=== PATIENT | male | born 1940 | race Caucasian/White ===

== ENCOUNTER 2017-01-30 15:04 | Emergency (ER) | payer MEDICARE ==
[2017-01-30 15:55] LABS: Bilirubin Negative (Negative); Blood, Urine Negative (Negative); Glucose, Urine (Dipstick) Negative (Negative); Ketone, Urine Negative (Negative); Nitrite Negative (Negative); Protein, Urine (Dipstick) 30 mg/dL (Neg-Trace); Urobilinogen 0.2 mg/dL (0.2-1.0)
[2017-01-30 16:07] LABS: Bacteria/HPF 2+ HPF (None Seen); RBC/HPF None Seen HPF (0-3); Squamous Epithelial 0-3 HPF (0-3); WBC/HPF 0-3 HPF (0-3)
[2017-01-30 16:08] LABS: Anion Gap 18 mmol/L (10-20); BUN (Urea Nitrogen) 28 mg/dL (8.4-25.7); Calc. Creatinine Clearance 0 mL/min (70-130); Calcium 8.3 mg/dL (7.8-10.44); Carbon Dioxide 21 mmol/L (23-31); Chloride 95 mmol/L (98-107); Estimated GFR-MDRD 54
[2017-01-30 16:11] LABS: Troponin I 0.019 ng/mL (< 0.028)
[2017-01-30 16:14] LABS: Band 4 % (5-11); Hematocrit 38.9 % (42.0-52.0); Mean Platelet Volume 6.5 fL (7.4-10.4); Neutrophil 34 % (42-75); Reactive Lymphocytes 3 % (0-10); White Blood Cell (WBC) Count 4.9 thou/uL (4.8-10.8)
--- NOTE | 2017-01-30 16:19 | RAD ---
RADIOGRAPH CHEST 2 VIEWS: 01/30/17 HISTORY: 76-year-old male with cough. FINDINGS: There is no air space density, pulmonary edema, pleural effusion, pneumothorax, or cardiomegaly. IMPRESSION: 1. No acute cardiopulmonary findings. 2. Status post coronary artery bypass graft surgery is evidence for coronary atherosclerotic dis ease. 3. Status post bilateral glenohumeral shoulder joint arthroplasty. alicia villanueva POS: [facility]
--- NOTE | 2017-01-30 17:58 | CT ---
CT THORAX NONCONTRAST: 01/30/17 HISTORY: 76-year-old male with productive cough and fever. COMPARISON: CT of 06/20/09. FINDINGS: There is a subtle finding of very mild multifocal, very faint infiltrate in the left lower lobe poste rolaterally. This would be too subtle to be visible on plain radiograph. It is noted that on the prev ious CT of 2009, there was also a mild infiltrate in the left lower lobe, but it was more prominent a t that time (not to mention the bilateral small consolidations abutting the posterior pleural surface s at that time). There is a new finding of an approximately 2.5 x 1.5 x 3 cm focal ground glass opaci ty in the apical segment of the left upper lobe. The rest of the lungs are essentially clear. Current ly, there is no pleural effusion. Trachea and main bronchi are patent and clear. Heavy atherosclerot ic calcification of all major coronary arteries. Sternotomy wires. Heavy atherosclerotic calcificatio n of thoracic aorta. Nonspecific multiple mildly enlarged mediastinal lymph nodes. Previously demonst rated moderate to large pericardial effusion is no longer present. There is no bronchiectasis, pneumo thorax or solid pulmonary mass. IMPRESSION: 1. Mild, faint, subtle infiltrate in the left lower lobe, probably representing early pneumonia. 2. A small focal ground glass lesion at the apical segment of the left upper lobe. This requires serial followup CTs (beginning in six months) to rule out the possibility of bronchoalveolar cell ca rcinoma (adenocarcinoma in situ). 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 3. Coronary atherosclerotic disease. PRASHANT Monroe POS: [facility]
[2017-01-30] MEDS ORDERED: predniSONE 20 MG TAB ONE (18:34)
[2017-01-30] MEDS ORDERED: Doxycycline Hyclate 100 MG TAB ONE (18:34)
== END 2017-01-30 18:53 | disposition home or self-care (01) ==
LOC: SCSER 15:04
DX: J18.9 Pneumonia, unspecified organism (principal); G47.30 Sleep apnea, unspecified; E78.5 Hyperlipidemia, unspecified; E11.9 Type 2 diabetes mellitus without complications; I10 Essential (primary) hypertension; E66.9 Obesity, unspecified; Z79.4 Long term (current) use of insulin; Z79.01 Long term (current) use of anticoagulants; Z79.82 Long term (current) use of aspirin; Z79.899 Other long term (current) drug therapy
CPT/HCPCS: 71020; 71250; 80048; 81003; 81015; 82553; 83605; 84484; 85025; 87081; 87086; 87430; 93005; 96360; J7506

== ENCOUNTER → 2019-06-02 | Day surgery (SDC) | payer MEDICARE ==
[2019-06-01 13:42] VITALS: BMI 37.9
[2019-06-02 08:53] LABS: Hemoglobin 9.4 g/dL (14.0-18.0); Mean Corpuscular HGB CONC 32.7 g/dL (32.0-36.0); Mean Corpuscular Hemoglobin 31.8 pg (27.0-31.0); Mean Corpuscular Volume 97.5 fL (78.0-98.0); Red Blood Cell (RBC) Count 2.96 mill/uL (4.70-6.10); White Blood Cell (WBC) Count 17.2 thou/uL (4.8-10.8)
[2019-06-02 08:56] LABS: INR-International Normal Ratio 1.3; PTT 37.2 SEC (22.9-36.1); Prothrombin Time 15.9 SEC (12.0-14.7)
[2019-06-02 09:03] LABS: Mean Platelet Volume 6.8 fL (7.4-10.4); Platelet Count 96 thou/uL (130-400); RBC Distribution Width 18.3 % (11.5-14.5)
[2019-06-02 09:13] LABS: Band 20 % (5-11); Lymphocytes 40 % (21-51); MDiff Complete? YES; Metamyelocyte 5 % (0-0); Monocytes 15 % (0-10); Myelocyte 1 % (0-0); Neutrophil 19 % (42-75); Nucleated RBC 2 % (0); Platelet Morphology Comment Appears Decreased; Polychromasia SLIGHT = 2-3 cells (100X) (0-2/hpf)
[2019-06-02 09:57] VITALS: BP 175/68; TEMP 97.6
--- NOTE | 2019-06-02 11:31 | CT ---
CT-guided bone marrow biopsy/aspiration HISTORY: Pancytopenia. FINDINGS: After explaining the procedure and answering all questions, patient was placed on the CT ta ble in prone position. Limited imaging of the pelvis performed. Sterile technique, buffered local anesthesia, CT guidance, and a posterior approach were used to care fully advance an 11-gauge bone biopsy needle to the posterior cortex of the left iliac bone. Position was confirmed with CT. Biopsy needle was carefully engaged into the cortex. Blood was aspirated and core specimen obtained. Specimen adequacy was confirmed by on-site pathology personnel. Postprocedure imaging shows no evidence of complication. Patient tolerated the procedure well and was returned to the holding area in good condition. IMPRESSION : Technically successful CT-guided bone marrow aspiration/biopsy. Pathology is pending.
--- NOTE | 2019-06-07 14:03 | CT ---
CT-guided bone marrow biopsy/aspiration HISTORY: Pancytopenia. FINDINGS: After explaining the procedure and answering all questions, patient was placed on the CT ta ble in prone position. Limited imaging of the pelvis performed. Sterile technique, buffered local anesthesia, CT guidance, and a posterior approach were used to care fully advance an 11-gauge bone biopsy needle to the posterior cortex of the left iliac bone. Position was confirmed with CT. Biopsy needle was carefully engaged into the cortex. Blood was aspirated and core specimen obtained. Specimen adequacy was confirmed by on-site pathology personnel. Postprocedure imaging shows no evidence of complication. Patient tolerated the procedure well and was returned to the holding area in good condition. IMPRESSION : Technically successful CT-guided bone marrow aspiration/biopsy. Pathology is pending. Transcribed Date/Time: 06/07/2019 2:02 PM
== END ==
LOC: CT 08:30
PROVIDERS: ATTEND Internal Medicine Hematology & Oncology
PROC: 07DR3ZX Extraction of Iliac Bone Marrow, Percutaneous Approach, Diagnostic (ICD-10-PCS; principal; 2019-06-02)
DX: C90.00 Multiple myeloma not having achieved remission (principal); D61.818 Other pancytopenia; G47.30 Sleep apnea, unspecified; E11.9 Type 2 diabetes mellitus without complications; I10 Essential (primary) hypertension; I25.10 Atherosclerotic heart disease of native coronary artery without angina pectoris; I48.91 Unspecified atrial fibrillation; E89.0 Postprocedural hypothyroidism; K21.9 Gastro-esophageal reflux disease without esophagitis; E78.00 Pure hypercholesterolemia, unspecified; Z79.01 Long term (current) use of anticoagulants; Z79.4 Long term (current) use of insulin; Z79.82 Long term (current) use of aspirin; Z79.899 Other long term (current) drug therapy; Z88.2 Allergy status to sulfonamides; Z95.1 Presence of aortocoronary bypass graft
CPT/HCPCS: 20225; 36415; 77002; 85025; 85097; 85610; 85730; 88184; 88189; 88237; 88264; 88280; 88305; 88311; 88313; 88341; 88342

== ENCOUNTER 2019-06-08 15:18 | Outpatient (CLI) | payer MEDICARE ==
--- NOTE | 2019-06-08 16:06 | RAD ---
Chest 2 views HISTORY: Dyspnea. Melanoma. COMPARISON: 04/09/2017. FINDINGS: Cardiac silhouette is upper limits of normal in size. Pulmonary vasculature upper limits of normal. Mediastinum is midline with postoperative changes and aortic calcification. No confluent airspace con solidation, pneumothorax, or pleural fluid are apparent. Degenerative changes throughout the thoracic spine. Bilateral shoulder prostheses partially visualize d. IMPRESSION : Borderline cardiomegaly. No active cardiopulmonary abnormalities are demonstrated. Atherosclerosis.
== END 2019-06-08 15:19 | disposition home or self-care (01) ==
LOC: BICRAD 15:18
PROVIDERS: ATTEND Internal Medicine Hematology & Oncology
DX: C90.00 Multiple myeloma not having achieved remission (principal); I51.7 Cardiomegaly; I70.0 Atherosclerosis of aorta
CPT/HCPCS: 36415; 71046; 80053; 82232; 82248; 83615; 83883; 84100; 84550

== ENCOUNTER 2019-06-11 10:10 | Emergency (ER) | payer MEDICARE, OTHER ==
[~2019-06-11 10:10] MED LIST: Atropine Sulfate 1 mg/10 ml Syringe ONE; Calcium Chloride 1 GM/10 ML Abboject SYRINGE ONE; Dextrose 50% Abboject 50 ML SYRINGE ONE; EPINEPHrine 1 MG/10 ML Abboject SYRINGE ONE
[2019-06-11 10:39] LABS: Actual Bicarbonate (HCO3a) 12.7 mEq/L (22-28); Analyzer IN Cardio ER; CO2 Tension 36.9 mmHg (35.0-45.0); Calcium, Ionized 1.18 mmol/L (1.12-1.30); Carboxyhemoglobin (COHb) 0.5 gm% (0.0-3.0); Hemoglobin (Hb) 8.7 g/dL (14.0-18.0); O2 Tension (PaO2) 154.7 mmHg (> 70.0); Potassium - ABG Lab 4.43 mmol/L (3.70-5.30)
[2019-06-11 10:44] LABS: ALV-art Gradient 512.175 (0-20); Puncture Site RRAD; pH, Arterial 7.16 (7.35-7.45)
[2019-06-11] MEDS ORDERED: Norepinephrine 8 MG/0.9% NS 250 ML ONE (10:56)
[2019-06-11] MEDS ORDERED: EPINEPHrine 1 MG, Admixture Fee 1 EACH in Dextrose 5% in Water 250 ML IVPB SCH (11:15)
--- NOTE | 2019-06-11 11:45 | RAD ---
PORTABLE SUPINE CHEST: HISTORY: Shortness of breath, intubation, and line placement. COMPARISON: 06/08/2019 study. FINDINGS: Heart size is enlarged. Postop sternotomy changes are seen. Endotracheal tube is in satisfactory po sition. Right subclavian line overlies the superior vena cava/right atrium junction. No signs of pn eumothorax on this supine film. Mild vascular engorgement and some atelectatic changes are seen in t he lung bases. IMPRESSION: Endotracheal tube and right-sided subclavian line now present. They appear to be in satisfactory pos ition. POS: [facility]
[2019-06-11 12:00] LABS: ALT (SGPT) 38 U/L (8-55); AST (SGOT) 80 U/L (5-34); Albumin 3.2 g/dL (3.4-4.8); Alkaline Phosphatase 203 U/L (40-110); Anion Gap 24 mmol/L (10-20); BUN (Urea Nitrogen) 46 mg/dL (8.4-25.7); Bilirubin, Total 3.1 mg/dL (0.2-1.2); Calc. Creatinine Clearance 0 mL/min (70-130); Calcium 9.1 mg/dL (7.8-10.44); Carbon Dioxide 12 mmol/L (23-31); Chloride 104 mmol/L (98-107); Estimated GFR-MDRD 24; Globulin 5.5 g/dL (2.4-3.5); Glucose 146 mg/dL (83-110); Potassium 5.8 mmol/L (3.5-5.1); Protein, Total 8.7 g/dL (5.8-8.1); Sodium 134 mmol/L (136-145)
[2019-06-11 12:01] LABS: Band 22 % (5-11); Hemoglobin 7.7 g/dL (14.0-18.0); Lymphocytes 45 % (21-51); MDiff Complete? YES; Macrocytosis MODERATE=16-30 cells (100X) (0-5/hpf); Mean Corpuscular HGB CONC 32.5 g/dL (32.0-36.0); Mean Corpuscular Hemoglobin 33.4 pg (27.0-31.0); Mean Platelet Volume 8.3 fL (7.4-10.4); Metamyelocyte 6 % (0-0); Monocytes 11 % (0-10); Myelocyte 2 % (0-0); Neutrophil 14 % (42-75); Nucleated RBC 5 % (0); Platelet Count 71 thou/uL (130-400); Platelet Morphology Comment Appears Decreased; Polychromasia MODERATE = 3-4 cells (100X) (0-2/hpf); RBC Distribution Width 18.5 % (11.5-14.5); Red Blood Cell (RBC) Count 2.29 mill/uL (4.70-6.10); White Blood Cell (WBC) Count 26.1 thou/uL (4.8-10.8)
[2019-06-11 12:11] LABS: Bilirubin Negative (Negative); Blood, Urine Negative (Negative); Clarity Turbid (Clear); Glucose, Urine (Dipstick) Normal (Negative); Leukocyte Negative Leu/uL (Negative); Nitrite Negative (Negative); Protein, Urine (Dipstick) 70 mg/dL (Neg-Trace); RBC/HPF 0-3 HPF (0-3); Squamous Epithelial None Seen HPF (0-3); Urobilinogen Normal mg/dL (Less than 2)
[2019-06-11 12:29] LABS: Bacteria/HPF 1+ HPF (None Seen)
[2019-06-11 12:30] LABS: Mucous/LPF 1+ LPF (<2+)
[2019-06-11] MEDS ORDERED: Insulin Regular 300 UNITS/3 ML VIAL ONE (12:38)
[2019-06-11] MEDS ORDERED: [UNRECOGNIZED DRUG - OTHER] IV SCH ×2 (13:00)
[2019-06-11] MEDS ORDERED: HUMAN PROTHROMBIN COMPLX IV SCH ×2 (13:00)
[2019-06-11] MEDS ORDERED: HUM PROTHROMBIN CPLX IV SCH ×2 (13:00)
--- NOTE | 2019-06-11 13:07 | CT ---
CT OF BRAIN PERFORMED WITHOUT CONTRAST ENHANCEMENT: History: Altered mental status, found unresponsive. FINDINGS: There is a very large acute left sided subdural hematoma measuring as much as 2 cm in thickness. Ther e is approximately 2.4 cm of shift of midline structures to the right. There is marked effacement to the sulci consistent with some diffuse cerebral edema. There is also a focus within the brain stem wh ich may represent a brainstem bleed. There is also blood within the third ventricle. There is also dunn bdural blood along the falx. IMPRESSION: Very large acute left subdural hematoma with subfalcine herniation with shift of midline structures b y approximately 2.3 cm. There is diffuse effacement to the sulci. There is also blood in the third an d fourth ventricle region but also what appears to be a focus of blood within the brain stem region. Findings telephoned to Dr. Kee. POS: [facility] [place]
--- NOTE | 2019-06-11 19:32 | CON ---
DATE OF CONSULTATION: HISTORY OF PRESENT ILLNESS: Mr. Altamirano was found unresponsive by family and brought in via ambulance. He has had no demonstrable neurologic function here and was intubated. He has had several cardiac arrests requiring resuscitation and is now being paced. Ultimately, a CT scan was performed showing a huge left-sided subdural hematoma with acute and hyperacute components and massive amount of midline shift with loss of talamantes-white differentiation over the left hemisphere. IMPRESSION AND PLAN: Non-survivable subdural hematoma. Discussed with family that no surgical intervention or any other intervention will result in survival and they expressed their understanding. We will try to arrange for visitation prior to withdrawal of support. All questions were answered. Notified nursing staff. Job ID: [id number]
[2019-06-12 17:53] LABS: SARS-CoV-2 MS2 Positive; SARS-CoV-2 N Gene Negative; SARS-CoV-2 S Gene Negative; SARS-CoV-2 orf1ab Negative
== END 2019-06-11 13:35 | disposition expired ==
LOC: ERS 10:10
DX: I62.00 Nontraumatic subdural hemorrhage, unspecified (principal); E87.5 Hyperkalemia; J96.90 Respiratory failure, unspecified, unspecified whether with hypoxia or hypercapnia; R00.1 Bradycardia, unspecified
CPT/HCPCS: 70450; 71045; 80053; 82553; 82805; 82962; 83880; 84484; 85025; 87804 ×2; 93005; 94002; 94760; U0002; 36415; 36416; 36556; 51702; 81003; 81015; 87635; 92950; 96365; 96366; 96375; 96376; 99292; C9132; J0171; J0461; J1815; J7070